=== PATIENT | male | born 1985 | race Hispanic/Latino ===

== ENCOUNTER 2024-05-16 21:38 | Emergency (ER) | payer BC, SELFPAY ==
[2024-05-16 21:41] VITALS: BP 153/92
--- NOTE | 2024-05-16 22:52 | ED.MUSCINJ ---
HPI-Injury
General
Chief Complaint: Musculo-Skeletal Complaint
Source: patient
Exam Limitations: none
Time Seen by Provider: 05/16/24 22:38
History of Present Illness-Injury
Initial Injury comments:
39-year-old [id number]-[id number]-[id number] male presents complaining of left long finger discomfort and deformity. He caught his finger awkwardly while taking his pants off and he heard a pop. Since then he has been unable to straighten the tip of his finger.
Phy Exam
Physical Exam
Physical Exam:
General: Well-appearing male no acute respiratory distress
Musculoskeletal exam: There is a flexion deformity of the DIP joint of the left long finger. Pain unable to actively extend the DIP joint. There is slight hyperextension of the long finger PIP joint.
He has good sensation to the fingers. There is brisk cap refill to the tip of the on the left hand as well
Injury Course
Orders/Labs/Results
Orders:
Orders
05/16/24 21:40
Finger(s)/Thumb 2 View Lt [CR Finger(s)/thumb Min 2 Vw Lt] Urgent
Comment:
Reason For Exam: possible dislocation
MDM/Problems Addressed
Differential Diagnosis Includes:
Left long finger discomfort and deformity. Question fracture versus dislocation versus tendon injury. I have personally visualized x-rays of the left long finger which show no acute bony abnormality other than a slight flexion deformity of the DIP
joint. Exam most consistent with a mallet finger. Patient placed in an extension dorsalis advised to keep this on at all times until seen by orthopedics.
*Critical Care Note
Total Time (30-74mins, 75-104mins- exclusive of procedures): Not Applicable
ED Attending Note
-
Portions of this chart may have been created with voice recognition software.� Occasional wrong word or��sound alike� substitutions may have occurred due to the inherent limitations of voice recognition software.
Discharge Plan
Departure
Patient Disposition: Home (Routine Discharge)
Date of Disposition: 05/16/24
Time of Disposition: 22:54
Patient with high blood pressure during this ER visit?: No
Discharge Problem:
Mallet deformity of left middle finger
Instructions: Muscle and Bone Pain (DC)
Activity Restrictions/Additional Instructions:
Keep splint on at all times. You may use ibuprofen or Tylenol for pain. Follow-up with orthopedics, hand specialist when you return home for evaluation of your torn tendon
Interventions
Interventions:
*Risk Screen - Suicide Last Done: 05/16/24 21:41
*General Assessment Last Done: 05/16/24 21:41
*Neglect/Abuse Screening Last Done: 05/16/24 21:41
*ED COVID-19 Vaccine History Last Done: 05/16/24 21:41
Discharge Date and Time
Print Language: KHMER
== END 2024-05-16 23:11 | disposition home or self-care (01) ==
LOC: EMR 21:38
PROVIDERS: EMERGENCY PHYSICIAN Emergency Medicine; FAMILY PHYSICIAN Nurse Practitioner Gerontology
DX: M20.012 Mallet finger of left finger(s) (principal)
CPT/HCPCS: 99283; 73140